=== PATIENT | female | born 1965 | race Caucasian/White ===

== ENCOUNTER 2021-03-17 10:00 | Outpatient (CLI) | payer OTHER, SELFPAY ==
[2014-10-10 07:17] VITALS: BMI 39.6
== END 2021-03-17 10:30 | disposition home or self-care (01) ==
LOC: IMMUN 03-22 10:00
PROVIDERS: PCP Family Medicine; Visit Provider Family Medicine
DX: Z23 Encounter for immunization (principal)
CPT/HCPCS: 0001A; 0002A; 91300